=== PATIENT | male | born 1965 | race African-American/Black ===

== ENCOUNTER 2024-11-23 19:02 | Emergency (ER) | payer MEDICAID ==
[~2024-11-23] VITALS: Ht 177.8 cm; Wt 75.0 kg
[2024-11-23 19:04] VITALS: O2SAT 100
[2024-11-23 22:51] LABS: HEMATOCRIT. 36.1 % (42.0-52.0); HEMOGLOBIN. 11.5 g/dL (14.0-18.0); MEAN PLATELET VOLUME 8.5 fl (7.4-10.4); PLATELET 287 x1000/uL (130-400); RED BLOOD CELL COUNT 3.62 mill/uL (4.7-6.1); RED CELL DISTRIBUTION WIDTH 13.3 % (11.6-14.6)
[2024-11-23 23:04] LABS: CREATININE 0.9 mg/dL (0.6-1.3); UREA NITROGEN BLOOD 13 mg/dL (9-23)
[2024-11-23 23:16] LABS: EOSINOPHILS % MANUAL 2.0 % (0.0-5.0); LYMPHOCYTES % MANUAL 27.0 % (20.0-50.0); MONOCYTES % MANUAL 16.0 % (2.0-8.0); NEUTROPHILS % MANUAL 55.0 % (45.0-75.0); PLATELET ESTIMATE NORMAL
[2024-11-24] MEDS: ACETAMINOPHEN 325MG TABLET PO ONE (02:23)
[2024-11-24] MEDS: IBUPROFEN 600MG TABLET PO ONE (04:40)
[2024-11-24] MEDS ORDERED: NAPR-681 MT (05:51)
[2024-11-24 08:26] VITALS: BP 103/71; PULSE 81; RESP 17; TEMP 36.7; O2SAT 96
== END 2024-11-24 08:28 | disposition home or self-care (01) ==
LOC: ER 19:02
DX: M54.9 Dorsalgia, unspecified (principal)
CPT/HCPCS: 36415; 72100; 80048; 85025; 99284